=== PATIENT | female | born 1965 | race Caucasian/White ===

== ENCOUNTER 2025-02-22 14:16 | Day surgery (SDC) | payer BC ==
[~2025-02-22] VITALS: Ht 177.8 cm; Wt 86.1 kg
[2025-02-22] MEDS ORDERED: LISD40CA PO (14:47)
[2025-02-22 14:49] VITALS: BP 116/82; PULSE 83; RESP 15
[2025-02-22] MEDS ORDERED: MIDAZolam 1 MG/ML 5ML VIAL ONE (16:30)
[2025-02-22] MEDS ORDERED: fentaNYL/PF 50MCG/1 ML 2ML syringe ONE (16:30)
[2025-02-22] MEDS ORDERED: diphenhydrAMINE 50 mg/ml inj ONE (16:33)
[2025-02-22] MEDS ORDERED: simethicone 40mg/0.6ml oral drops 30ml ONE (16:33)
[2025-02-22 17:05] VITALS: BP 115/82; PULSE 76; RESP 13; O2SAT 98
[2025-02-22 17:15] VITALS: BP 112/78; PULSE 74; RESP 12; O2SAT 99
[2025-02-22 17:25] VITALS: BP 110/73; PULSE 65; RESP 12; O2SAT 98
[2025-02-22 17:35] VITALS: BP 114/76; PULSE 68; RESP 16; O2SAT 98
== END 2025-02-22 17:45 | disposition home or self-care (01) ==
LOC: GI LAB 14:16
PROVIDERS: ATTEND Internal Medicine Gastroenterology
DX: R19.5 Other fecal abnormalities (principal); K63.5 Polyp of colon; K57.30 Diverticulosis of large intestine without perforation or abscess without bleeding; K64.1 Second degree hemorrhoids
CPT/HCPCS: 45385; 99152; J1200; J2250; J3010; J7030; Z7512; 45380; 99153; A4620; C1889